=== PATIENT | male | born 1975 | race Two or more races ===

== ENCOUNTER 2017-08-14 11:50 | Emergency (ER) | payer MEDICAID, MEDICARE, OTHER ==
[~2017-08-14] VITALS: Ht 175.3 cm; Wt 131.5 kg
[2017-08-14 12:31] LABS: Basophils # (auto) 0 uL; Basophils % (auto) 0.4 % (0.0-2.0); Eosinophils # (auto) 0.3 uL; Eosinophils % (auto) 3.4 % (0.0-7.0); Hematocrit 47.2 % (41.0-53.0); Hemoglobin 15.9 g/dL (13.5-17.5); Lymphocytes # (auto) 1.4 uL; Lymphocytes % (auto) 17.7 % (10.0-50.0); Mean Corpuscular Hgb Conc. 33.7 g/dL (32.0-36.0); Monocytes # (auto) 0.6 uL; Monocytes % (auto) 7.4 % (0.0-12.0); Neutrophils # (auto) 5.7 uL; Neutrophils % (auto) 71.1 % (37.0-80.0); Platelet Count (auto) 325 10^3/uL (140-450); Red Blood Cells 5.49 10^6/uL (4.5-5.90); Red Cell Distribution Width 13.8 % (11.8-14.3)
[2017-08-14 12:57] LABS: Alanine Aminotransferase 31 U/L (16-61); Anion Gap 8 (5-15); Aspartate Aminotransferase 15 U/L (15-37); BUN/Creatinine Ratio 11.7; Blood Urea Nitrogen 12 mg/dL (7-18); Calcium 9.4 mg/dL (8.5-10.1); Carbon Dioxide 28 mmol/L (21-32); Chloride 102 mmol/L (98-107); GFR African American 102 mL/min; GFR Non-African American 84 mL/min; Glucose 100 mg/dL (74-106); Magnesium 2.5 mg/dL (1.6-2.6); Sodium 138 mmol/L (136-145)
[2017-08-14 13:02] LABS: Alkaline Phosphatase 67 U/L (45-117); Bilirubin, Total 0.6 mg/dL (0.2-1.0); Total Protein 8.1 g/dL (6.4-8.2)
[2017-08-14 19:37] VITALS: BP 144/94
== END 2017-08-14 21:06 | disposition home or self-care (01) ==
LOC: ER 11:50
DX: G89.29 Other chronic pain (principal); M54.5 Low back pain; Z82.49 Family history of ischemic heart disease and other diseases of the circulatory system
CPT/HCPCS: 36415; 71045; 80053; 83735; 84484; 85025; 93005

== ENCOUNTER 2018-03-16 10:08 | Observation (INO) | payer MEDICAID, OTHER ==
[~2018-03-16] VITALS: Ht 175.3 cm; Wt 124.7 kg
[2018-03-16 11:36] LABS: Basophils # (auto) 0.1 uL; Basophils % (auto) 1.4 % (0.0-2.0); Eosinophils # (auto) 0.2 uL; Eosinophils % (auto) 3.7 % (0.0-7.0); Hematocrit 47.6 % (41.0-53.0); Hemoglobin 16.3 g/dL (13.5-17.5); Lymphocytes # (auto) 1.3 uL; Mean Corpuscular Hemoglobin 29.2 pg (28.0-32.0); Mean Corpuscular Hgb Conc. 34.3 g/dL (32.0-36.0); Monocytes # (auto) 0.7 uL; Monocytes % (auto) 11.3 % (0.0-12.0); Neutrophils # (auto) 3.7 uL; Neutrophils % (auto) 61.6 % (37.0-80.0); Nucleated Red Blood Cells % 0.2 %; Platelet Count (auto) 345 10^3/uL (140-450); White Blood Cell 6.1 10^3/uL (4.4-10.8)
[2018-03-16 11:59] LABS: Alanine Aminotransferase 40 U/L (16-61); Albumin 3.9 g/dL (3.4-5.0); Alkaline Phosphatase 64 U/L (45-117); Anion Gap 10 (5-15); Aspartate Aminotransferase 25 U/L (15-37); BUN/Creatinine Ratio 15.4; Bilirubin, Total 0.9 mg/dL (0.2-1.0); Blood Urea Nitrogen 21 mg/dL (7-18); Calcium 8.9 mg/dL (8.5-10.1); Carbon Dioxide 25 mmol/L (21-32); Chloride 103 mmol/L (98-107); GFR African American 74 mL/min; GFR Non-African American 61 mL/min; Glucose 137 mg/dL (74-106); Magnesium 2.8 mg/dL (1.6-2.6); Potassium 3.6 mmol/L (3.5-5.1); Sodium 138 mmol/L (136-145); Total Protein 8.4 g/dL (6.4-8.2)
[2018-03-16 12:13] LABS: Partial Thromboplastin Time 32.4 sec (23.78-33.04); Prothrombin Time 10.7 sec (9.27-12.13)
[2018-03-16 15:50] LABS: Urine Amorphous Crystal FEW /hpf (None Seen); Urine Bacteria NONE SEEN /hpf (None Seen); Urine Blood TRACE /uL (Negative); Urine Mucus FEW (None Seen); Urine Specific Gravity 1.034 (1.001-1.035); Urine WBC 1 /hpf (0 - 3)
[2018-03-16 16:02] LABS: Alcohol, Urine < 3.0 mg/dL (0-5); Amphetamine Screen, Urine NEGATIVE (NEGATIVE); Barbiturate Scree,Urine NEGATIVE (NEGATIVE); Benzodiazephine Screen, Urine NEGATIVE (NEGATIVE); Cannabinoid Screen, Urine POSITIVE (NEGATIVE); Cocaine Screen, Urine NEGATIVE (NEGATIVE); Opiate Scree,Urine NEGATIVE (NEGATIVE); Phencyclidine Screen, Urine NEGATIVE (NEGATIVE)
[2018-03-16] MEDS ORDERED: SODIUM CHLORIDE 0.9% 1,000 ML IVB ONE (16:32)
[2018-03-16] MEDS ORDERED: ASPirin-EC 81 mg tab PO ONE (16:45)
[2018-03-16 17:44] LABS: Magnesium 2.4 mg/dL (1.6-2.6)
[2018-03-16 17:59] LABS: Partial Thromboplastin Time 31.3 sec (23.78-33.04); Prothrombin Time 10.7 sec (9.27-12.13)
[2018-03-16 20:00] VITALS: BP 124/81
== END 2018-03-16 20:31 | disposition home or self-care (01) | DRG 198 ==
LOC: ER 10:08 → OVERFLOW 10:09 → ER 20:31
PROVIDERS: ADMIT Family Medicine; ATTEND Family Medicine
DX: R07.2 Precordial pain (principal); I25.2 Old myocardial infarction; F32.9 Major depressive disorder, single episode, unspecified; K52.9 Noninfective gastroenteritis and colitis, unspecified; Z82.49 Family history of ischemic heart disease and other diseases of the circulatory system
CPT/HCPCS: 36415; 71046; 80053; 80307; 81001; 82150; 83690; 83735; 83880; 84443; 84484; 85025; 85379; 85610; 85730; 93005; 99285; G0378; J7030

== ENCOUNTER 2018-04-23 09:25 | Emergency (ER) | payer OTHER ==
[~2018-04-23] VITALS: Ht 175.3 cm; Wt 124.7 kg
[2018-04-23 10:55] LABS: Basophils # (auto) 0.1 uL; Basophils % (auto) 0.9 % (0.0-2.0); Eosinophils # (auto) 0.2 uL; Eosinophils % (auto) 3.7 % (0.0-7.0); Hematocrit 44.6 % (41.0-53.0); Hemoglobin 15.6 g/dL (13.5-17.5); Mean Corpuscular Hemoglobin 29.9 pg (28.0-32.0); Mean Corpuscular Volume 85.6 fL (80.0-100.0); Monocytes # (auto) 0.5 uL; Monocytes % (auto) 8.5 % (0.0-12.0); Neutrophils # (auto) 4.6 uL; Neutrophils % (auto) 71.9 % (37.0-80.0); Platelet Count (auto) 319 10^3/uL (140-450); Red Blood Cells 5.21 10^6/uL (4.5-5.90); Red Cell Distribution Width 14.4 % (11.8-14.3); White Blood Cell 6.4 10^3/uL (4.4-10.8)
[2018-04-23 11:29] LABS: Alanine Aminotransferase 29 U/L (16-61); Albumin 3.8 g/dL (3.4-5.0); Alkaline Phosphatase 70 U/L (45-117); Anion Gap 4 (5-15); Aspartate Aminotransferase 16 U/L (15-37); BUN/Creatinine Ratio 13.9; Bilirubin, Total 0.7 mg/dL (0.2-1.0); Blood Urea Nitrogen 14 mg/dL (7-18); Calcium 8.6 mg/dL (8.5-10.1); Carbon Dioxide 26 mmol/L (21-32); Chloride 108 mmol/L (98-107); GFR African American 104 mL/min; GFR Non-African American 86 mL/min; Glucose 114 mg/dL (74-106); Potassium 4.1 mmol/L (3.5-5.1); Sodium 138 mmol/L (136-145); Total Protein 7.9 g/dL (6.4-8.2)
[2018-04-23] MEDS: SODIUM CHLORIDE 0.9% 1,000 ML IV ONE (11:45)
[2018-04-23] MEDS: ALPRAZolam 0.5 MG TAB PO ONE (11:58)
[2018-04-23 12:00] LABS: Urine Bacteria NONE SEEN /hpf (None Seen); Urine Blood 1+ /uL (Negative); Urine Mucus FEW (None Seen); Urine Specific Gravity 1.028 (1.001-1.035); Urine WBC 3 /hpf (0 - 3)
[2018-04-23 12:32] LABS: Alcohol, Urine < 3.0 mg/dL (0-5); Amphetamine Screen, Urine NEGATIVE (NEGATIVE); Barbiturate Scree,Urine NEGATIVE (NEGATIVE); Benzodiazephine Screen, Urine NEGATIVE (NEGATIVE); Cannabinoid Screen, Urine POSITIVE (NEGATIVE); Cocaine Screen, Urine NEGATIVE (NEGATIVE); Opiate Scree,Urine NEGATIVE (NEGATIVE); Phencyclidine Screen, Urine NEGATIVE (NEGATIVE)
[2018-04-23 13:30] VITALS: BP 125/68
== END 2018-04-23 13:37 | disposition home or self-care (01) ==
LOC: ER 09:25
DX: F41.0 Panic disorder [episodic paroxysmal anxiety] (principal); N39.0 Urinary tract infection, site not specified; E66.9 Obesity, unspecified; F32.9 Major depressive disorder, single episode, unspecified; I25.2 Old myocardial infarction; F12.10 Cannabis abuse, uncomplicated; Z68.41 Body mass index [BMI] 40.0-44.9, adult
CPT/HCPCS: 36415; 71046; 80053; 80307; 81001; 83735; 84443; 84484; 85025; 93005

== ENCOUNTER 2018-08-29 15:41 | Emergency (ER) | payer OTHER ==
[~2018-08-29] VITALS: Ht 172.7 cm; Wt 132.0 kg
[2018-08-29 15:54] VITALS: BP 137/86
[2018-08-29] MEDS ORDERED: methylPREDNISolone SOD SUCC 125 MG/2 ML VL IM ONE (16:45)
== END 2018-08-29 17:19 | disposition home or self-care (01) ==
LOC: ER 15:47
DX: T78.40XA Allergy, unspecified, initial encounter (principal); X58.XXXA Exposure to other specified factors, initial encounter
CPT/HCPCS: 96372; 99283; J2930

== ENCOUNTER 2018-09-01 09:31 | Emergency (ER) | payer OTHER ==
[~2018-09-01] VITALS: Ht 172.7 cm; Wt 132.0 kg
[2018-09-01 10:25] LABS: Basophils # (auto) 0 uL; Basophils % (auto) 0.3 % (0.0-2.0); Eosinophils # (auto) 0 uL; Hematocrit 48.9 % (41.0-53.0); Hemoglobin 16.5 g/dL (13.5-17.5); Lymphocytes # (auto) 0.6 uL; Lymphocytes % (auto) 4.2 % (10.0-50.0); Mean Corpuscular Hemoglobin 28.9 pg (28.0-32.0); Mean Corpuscular Hgb Conc. 33.8 g/dL (32.0-36.0); Mean Corpuscular Volume 85.5 fL (80.0-100.0); Monocytes # (auto) 1.1 uL; Monocytes % (auto) 7.8 % (0.0-12.0); Neutrophils # (auto) 12.7 uL; Neutrophils % (auto) 87.7 % (37.0-80.0); Nucleated Red Blood Cells % 0.1 %; Platelet Count (auto) 378 10^3/uL (140-450); Red Blood Cells 5.72 10^6/uL (4.5-5.90); Red Cell Distribution Width 14.2 % (11.8-14.3); White Blood Cell 14.5 10^3/uL (4.4-10.8)
[2018-09-01 10:41] LABS: Alanine Aminotransferase 27 U/L (16-61); Anion Gap 8 (5-15); Aspartate Aminotransferase 14 U/L (15-37); BUN/Creatinine Ratio 13.2; Blood Urea Nitrogen 14 mg/dL (7-18); Calcium 8.9 mg/dL (8.5-10.1); Carbon Dioxide 26 mmol/L (21-32); Chloride 105 mmol/L (98-107); GFR African American 98 mL/min; GFR Non-African American 81 mL/min; Glucose 130 mg/dL (74-106); Magnesium 2.4 mg/dL (1.6-2.6); Potassium 3.9 mmol/L (3.5-5.1); Sodium 139 mmol/L (136-145)
[2018-09-01 10:45] LABS: Alkaline Phosphatase 70 U/L (45-117); Bilirubin, Total 0.6 mg/dL (0.2-1.0); Total Protein 7.9 g/dL (6.4-8.2)
[2018-09-01 12:19] VITALS: BP 130/80
== END 2018-09-01 12:53 | disposition home or self-care (01) ==
LOC: ER 09:31
DX: J40 Bronchitis, not specified as acute or chronic (principal); F41.9 Anxiety disorder, unspecified; F32.9 Major depressive disorder, single episode, unspecified; F12.10 Cannabis abuse, uncomplicated
CPT/HCPCS: 36415; 71046; 80053; 83735; 84484; 85025; 93005

== ENCOUNTER 2018-10-26 23:46 | Emergency (ER) | payer OTHER ==
[~2018-10-26] VITALS: Ht 175.3 cm; Wt 131.5 kg
[2018-10-26 23:59] VITALS: BP 131/86
[2018-10-27] MEDS ORDERED: methylPREDNISolone SOD SUCC 125 MG/2 ML VL IM ONE (02:00)
== END 2018-10-27 02:44 | disposition home or self-care (01) ==
LOC: ER 23:51
DX: T78.40XA Allergy, unspecified, initial encounter (principal); X58.XXXA Exposure to other specified factors, initial encounter
CPT/HCPCS: 96372; 99283; J2930

== ENCOUNTER 2019-02-16 12:36 | Emergency (ER) | payer OTHER ==
[~2019-02-16] VITALS: Ht 175.3 cm; Wt 131.5 kg
[2019-02-16 13:37] LABS: Basophils # (auto) 0 uL; Basophils % (auto) 0.6 % (0.0-2.0); Eosinophils # (auto) 0.4 uL; Eosinophils % (auto) 5.8 % (0.0-7.0); Hematocrit 46.6 % (41.0-53.0); Hemoglobin 15.6 g/dL (13.5-17.5); Lymphocytes # (auto) 1.7 uL; Lymphocytes % (auto) 24.8 % (10.0-50.0); Mean Corpuscular Hemoglobin 27.7 pg (28.0-32.0); Mean Corpuscular Hgb Conc. 33.5 g/dL (32.0-36.0); Mean Corpuscular Volume 82.9 fL (80.0-100.0); Monocytes # (auto) 0.6 uL; Monocytes % (auto) 8.7 % (0.0-12.0); Neutrophils % (auto) 60.1 % (37.0-80.0); Platelet Count (auto) 318 10^3/uL (140-450); Red Blood Cells 5.62 10^6/uL (4.5-5.90); Red Cell Distribution Width 13.8 % (11.8-14.3); White Blood Cell 6.7 10^3/uL (4.4-10.8)
[2019-02-16 13:54] LABS: Albumin 3.7 g/dL (3.4-5.0); Anion Gap 8 (5-15); Blood Urea Nitrogen 14 mg/dL (7-18); Calcium 8.6 mg/dL (8.5-10.1); Carbon Dioxide 26 mmol/L (21-32); Chloride 108 mmol/L (98-107); Glucose 111 mg/dL (74-106); Sodium 142 mmol/L (136-145)
[2019-02-16 14:04] LABS: Alanine Aminotransferase 30 U/L (16-61); Alkaline Phosphatase 67 U/L (45-117); Aspartate Aminotransferase 18 U/L (15-37); BUN/Creatinine Ratio 13.6; Bilirubin, Total 0.7 mg/dL (0.2-1.0); GFR African American 101 mL/min; GFR Non-African American 83 mL/min; Total Protein 7.6 g/dL (6.4-8.2)
[2019-02-16 15:21] VITALS: BP 130/80
== END 2019-02-16 15:29 | disposition home or self-care (01) ==
LOC: ER 12:36
DX: F41.9 Anxiety disorder, unspecified (principal); M34.9 Systemic sclerosis, unspecified; Z86.39 Personal history of other endocrine, nutritional and metabolic disease
CPT/HCPCS: 36415; 71046; 80053; 84484; 85025; 93005

== ENCOUNTER 2019-08-13 15:21 | Emergency (ER) | payer OTHER ==
[~2019-08-13] VITALS: Ht 177.8 cm; Wt 134.3 kg
[2019-08-13 17:25] VITALS: BP 112/74
== END 2019-08-13 17:50 | disposition home or self-care (01) ==
LOC: ER 15:21
DX: J03.90 Acute tonsillitis, unspecified (principal); H66.93 Otitis media, unspecified, bilateral
CPT/HCPCS: 71046